=== PATIENT | male | born 1945 | race Caucasian/White ===

== ENCOUNTER 2017-08-13 09:31 | Day surgery (SDC) | payer MEDICARE, BC ==
[~2017-08-13 09:31] MED LIST: Lactated Ringers 1,000 ML IV SCH
[2017-08-13] MEDS ORDERED: fentaNYL 100 MCG/2 ML SDV ONE (11:11)
[2017-08-13] MEDS ORDERED: Propofol 200 MG/20 ML SDV ONE ×2 (11:11→11:50)
--- NOTE | 2017-08-14 07:50 | OR ---
PREOPERATIVE DIAGNOSIS: History of colon polyps. POSTOPERATIVE DIAGNOSIS: History of colon polyps. PROCEDURES PERFORMED: Colonoscopy with polypectomy. One polyp was removed at 100 cm, two polyps were removed at 20 cm, and then one polyp was removed at 5 cm. INDICATIONS: The patient is a 71-year-old male with history of colon polyps multiple times in the past. He presents for repeat colonoscopy at this time. PROCEDURE IN DETAIL: This was done in the endoscopy suite. Sedation was given per Anesthesia. He was placed in left lateral position. First, the rectal exam was done and was normal. Scope was introduced into the rectum, and slowly advanced through the rectum, sigmoid, descending, transverse, and ascending colon until the cecum was reached. Upon reaching the cecum, scope was withdrawn looking at all surfaces on the way out. No mucosal abnormalities, lesions, or polyps were noted until approximately 100 cm, where a small polyp was located and removed by a hot loop forceps. Scope was then withdrawn further. He had moderate sigmoid diverticulosis. Following this down the rectum at 20 cm, two small polyps were located and removed by hot loop forceps, and finally at 5 cm, a larger polyp was located and removed by hot loop forceps. All were sent to Pathology. The patient was brought to the PACU postop and will be sent home later today. We will call him with pathology when available. He will need a repeat colonoscopy in three years time. EDMUNDOD: 08/13/2017 12:04:53 MODL: 08/13/2017 19:02:19 /[id number]
== END 2017-08-13 13:00 | disposition home or self-care (01) ==
LOC: VM.SDS 09:31
PROVIDERS: ATTEND Surgery
DX: Z12.11 Encounter for screening for malignant neoplasm of colon (principal); D12.6 Benign neoplasm of colon, unspecified; K57.30 Diverticulosis of large intestine without perforation or abscess without bleeding; I10 Essential (primary) hypertension; E11.9 Type 2 diabetes mellitus without complications; Z79.4 Long term (current) use of insulin; Z86.010 Personal history of colon polyps; Z79.82 Long term (current) use of aspirin; Z79.899 Other long term (current) drug therapy
CPT/HCPCS: 00812; 45384; 82962; 88305; J2704; J3010; J7120